=== PATIENT | male | born 1985 | race African-American/Black ===

== ENCOUNTER → 2020-12-17 | Outpatient (CLI) | payer OTHER ==
--- NOTE | 2020-12-17 15:49 | XR ---
Lumbosacral spine HISTORY: R 53, pain 5 views of lumbosacral spine There is a slight spinal curvature. There is no evident spondylolysis, there is a minimal retrolisthe sis grade 1 L5-S1. There is multilevel spondylosis, loss of disc height present L5-S1. Sclerosis pres ent in the posterior element to the lower lumbar spine. IMPRESSION: Degenerative disc disease and facet arthropathy.
--- NOTE | 2020-12-17 15:50 | XR ---
Thoracic spine HISTORY: R 53, pain 3 views of the thoracic spine There is a gentle spinal curvature present. Thoracic vertebral bodies show preserved height, alignmen t, and bone mineralization. Multilevel spondylosis. Some loss of disc height present at intervertebra l levels of the lower thoracic spine. IMPRESSION: Degenerative disc disease, slight spinal curvature.
--- NOTE | 2020-12-17 15:53 | XR ---
Cervical spine HISTORY: R 52, pain 5 views of the cervical spine There is no significant foraminal encroachment evident with the exception of C3-4 on the right, C4-5 on the right greater than C5-6, evaluation the lower foramina on the left is somewhat limited. There is somewhat of accentuation of the cervical lordosis. Loss of disc height present at C3-4, C4-5, C5-6 , there is multilevel spondylosis. Prevertebral soft tissues are within normal limits. IMPRESSION: Degenerative disc disease, foraminal encroachment, consider MRI of the spine for better e valuation.
== END | disposition home or self-care (01) ==
LOC: RADXRMAIN 12:22
PROVIDERS: ATTEND Internal Medicine
DX: M51.34 Other intervertebral disc degeneration, thoracic region (principal); M43.8X4 Other specified deforming dorsopathies, thoracic region; M51.37 Other intervertebral disc degeneration, lumbosacral region; M47.817 Spondylosis without myelopathy or radiculopathy, lumbosacral region; M50.30 Other cervical disc degeneration, unspecified cervical region; M99.71 Connective tissue and disc stenosis of intervertebral foramina of cervical region
CPT/HCPCS: 72050; 72070; 72110

== ENCOUNTER 2023-05-16 23:25 | Emergency (ER) | payer OTHER ==
[2023-05-16] MEDS ORDERED: SODIUM CHLORIDE 0.9% 1,000 ML IV STA (23:39)
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
[2023-05-16 23:42] VITALS: BP 139/88; PULSE 81; RESP 18; TEMP 98.2
[2023-05-17 00:13] LABS: Basophils % (A) 0 %; Eosinophils # (A) 0.2 k/uL (0-0.7); Eosinophils % (A) 4 %; HCT 43.8 % (39.0-53.0); HGB 13.9 gm/dL (13.0-17.5); Lymphocytes # (A) 2.3 k/uL (1.0-4.8); Lymphocytes % (A) 42 %; MCH 28.3 pg (25.0-35.0); MCHC 31.7 g/dL (31.0-37.0); Mean Platelet Volume 7.3; Monocytes # (A) 0.2 k/uL (0-1.0); Monocytes % (A) 4 %; Neutrophils # (A) 2.7 k/uL (1.3-7.7); Neutrophils % (A) 49 %; Platelet Count 203 k/uL (150-450); RBC 4.92 m/uL (4.30-5.90); RDW 12.8 % (11.5-15.5); WBC 5.6 k/uL (3.8-10.6)
[2023-05-17 00:26] LABS: Partial Thromboplastin Time 21.2 sec (22.0-30.0); Prothrombin Time 10.4 sec (9.0-12.0)
[2023-05-17 00:31] LABS: ALT 37 U/L (4-49); African American GFR (CKD) >90 (>60 ml/min/1.73 sqM); Albumin 4.2 g/dL (3.5-5.0); Anion Gap 11 mmol/L; Blood Urea Nitrogen 12 mg/dL (9-20); Carbon Dioxide 22 mmol/L (22-30); Chloride 108 mmol/L (98-107); Glucose 131 mg/dL (74-99); Non-African American GFR(CKD) >90 (>60 ml/min/1.73 sqM); Sodium 141 mmol/L (137-145); Total Bilirubin 0.4 mg/dL (0.2-1.3); Total Protein 7.4 g/dL (6.3-8.2)
[2023-05-17 00:34] LABS: AST 52 U/L (17-59); Alkaline Phosphatase 58 U/L (38-126); Magnesium 1.9 mg/dL (1.6-2.3); Phosphorus 3.2 mg/dL (2.5-4.5)
[2023-05-17 00:38] LABS: NT-Pro-B-Type Natriuretic Pept 27 pg/mL
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
== END 2023-05-17 01:53 | disposition left against medical advice (07) ==
LOC: EC 23:25
DX: Z53.21 Procedure and treatment not carried out due to patient leaving prior to being seen by health care provider (principal); Z53.29 Procedure and treatment not carried out because of patient's decision for other reasons; V49.9XXA Car occupant (driver) (passenger) injured in unspecified traffic accident, initial encounter; Y92.410 Unspecified street and highway as the place of occurrence of the external cause
CPT/HCPCS: 36415; 70450; 72125; 80053; 83605; 83735; 83880; 84100; 84484; 85025; 85610; 85730; 93005; 96360; 99285

== ENCOUNTER 2024-03-13 23:30 | Inpatient (IN) | payer MEDICAID, OTHER ==
[2024-03-13 23:40] VITALS: RESP 18
--- NOTE | 2024-03-14 00:43 | ED ---
Psych HPI - General Chief Complaint: Psychiatric Symptoms Stated Complaint: Mental Health Time Seen by Provider: 03/14/24 00:29 Source: patient Mode of arrival: ambulatory - History of Present Illness Initial Comments: Jerica is a 38-year-old male with a history of depression who presents to the emergency department today reporting suicidal thoughts. Patient states that this week has been worse than others she has been having thoughts of ending his life by overdose. Patient states he has tried multiple times to get through to [facility] but has not been able to jump with hoops to get appropriate care. Patient states he has a history of depression he has been on prozac or paxil, trazodone,Remeron and Seroquel at different points in the past he is currently only taking Seroquel. Reports he has never received inpatient psychiatric care aside from receiving psychiatric care while incarcerated. - Related Data Allergies Allergy/AdvReac Type Severity Reaction Status Date / Time No Known Allergies Allergy Verified 05/17/23 00:17 Review of Systems ROS Statement: Those systems with pertinent positive or pertinent negative responses have been documented in the HPI. ROS Other: All systems not noted in ROS Statement are negative. Past Medical History Past Medical History: No Reported History History of Any Multi-Drug Resistant Organisms: None Reported Past Surgical History: No Surgical Hx Reported Past Psychological History: Anxiety, Depression Smoking Status: Never smoker Past Alcohol Use History: Occasional Past Drug Use History: Marijuana General Exam - General Exam Comments Initial Comments: Physical Exam GENERAL: Patient is well-developed and well-nourished. Patient is nontoxic and well-hydrated and is in no distress. HENT: Normocephalic, Atraumatic. EYES: PERRL, EOMI PULMONARY: Unlabored respirations. CARDIOVASCULAR: RRR Warm and well perfused extremities ABDOMEN: Non-distended SKIN: No rashes or bruising : Deferred NEUROLOGIC: Alert and oriented Normal speech Normal gait MUSCULOSKELETAL: Moving all extremities with no apparent injury PSYCHIATRIC: Suicidal, hopeless affect Course Vital Signs 03/13/24 23:31 Temperature 97.6 F Pulse Rate 69 Respiratory 18 Rate Blood Pressure 137/84 O2 Sat by Pulse 96 Oximetry Medical Decision Making - Medical Decision Making Was pt. sent in by a medical professional or institution (, PA, CARDIOLOGY TEACHER, urgent c are, hospital, or [facility]...) When possible be specific @ -No Did you speak to anyone other than the patient for history (EMS, parent, family, police, friend...)? What history was obtained from this source @ -No Did you review nursing and triage notes (agree or disagree)? Why? @ -I reviewed and agree with nursing and triage notes Were old charts reviewed (outside hosp., previous admission, EMS record, old EKG, old radiological studies, urgent care reports/EKG's, [facility] records)? Report findings @ -No old charts were reviewed Differential Diagnosis (chest pain, altered mental status, abdominal pain women, abdominal pain men, vaginal bleeding, weakness, fever, dyspnea, syncope, headache, dizziness, GI bleed, back pain, seizure, CVA, palpatations, mental health)? @ -Not applicable EKG interpreted by me (3pts min.). @ -As above X-rays interpreted by me (1pt min.). @ -None done CT interpreted by me (1pt min.). @ -None done U/S interpreted by me (1pt. min.). @ -None done What testing was considered but not performed or refused? (CT, X-rays, U/S, labs)? Why? @ -None What meds were considered but not given or refused? Why? @ -None Did you discuss the management of the patient with other professionals (professionals i.e. , PA, CARDIOLOGY TEACHER, lab, RT, psych nurse, social services analyst, transmitter operator, teacher, purchasing officer, transplant case manager)? Give summary @ -No Was smoking cessation discussed for >3mins.? @ -No Was critical care preformed (if so, how long)? @ -No Were there social determinants of health that impacted care today? How? (Homelessness, low income, unemployed, alcoholism, drug addiction, transportation, low edu. Level, literacy, decrease access to med. care, senior living, rehab)? @ -No Was there de-escalation of care discussed even if they declined (Discuss DNR or withdrawal of care, Hospice)? DNR status @ -No What co-morbidities impacted this encounter? (DM, HTN, Smoking, COPD, CAD, Cancer, CVA, ARF, Chemo, Hep., AIDS, mental health diagnosis, sleep apnea, morbid obesity)? @ -None Was patient admitted / discharged? Hospital course, mention meds given and route, prescriptions, significant lab abnormalities, going to OR and other pertinent info. @ -Psychiatric hospital Seen and evaluated, patient acutely suicidal. Patient medically clear for evaluation was evaluated by EPS and signed in voluntarily to the psychiatric unit. Undiagnosed new problem with uncertain prognosis? @ -No Drug Therapy requiring intensive monitoring for toxicity (Heparin, Nitro, Insulin, Cardizem)? @ -No Were any procedures done? @ -No Diagnosis/symptom? @ -Suicidal ideation Acute, or Chronic, or Acute on Chronic? @ -Acute Uncomplicated (without systemic symptoms) or Complicated (systemic symptoms)? @ -Default Side effects of treatment? @ -No Exacerbation, Progression, or Severe Exacerbation? @ -No Poses a threat to life or bodily function? How? (Chest pain, [place], [place], pneumonia, PE, COPD, DKA, ARF, appy, cholecystitis, CVA, Diverticulitis, Homicidal, Suicidal, threat to staff... and all critical care pts) @ -No - Lab Data Result diagrams: 03/14/24 01:18 Lab Results 03/14/24 03/14/24 03/14/24 Range/Units 00:40 01:18 01:18 WBC 7.0 (3.8-10.6) k/uL RBC 4.38 (4.30-5.90) m/uL Hgb 12.7 L (13.0-17.5) gm/dL Hct 39.0 (39.0-53.0) % MCV 89.0 (80.0-100.0) fL MCH 29.1 (25.0-35.0) pg MCHC 32.7 (31.0-37.0) g/dL RDW 14.0 (11.5-15.5) % Plt Count 205 (150-450) k/uL MPV 7.4 Neutrophils % 47 % Lymphocytes % 38 % Monocytes % 7 % Eosinophils % 5 % Basophils % 1 % Neutrophils # 3.3 (1.3-7.7) k/uL Lymphocytes # 2.6 (1.0-4.8) k/uL Monocytes # 0.5 (0-1.0) k/uL Eosinophils # 0.4 (0-0.7) k/uL Basophils # 0.0 (0-0.2) k/uL Salicylates <1.0 mg/dL Urine Opiates Screen Not Detected (NotDetected) Ur Oxycodone Screen Not Detected (NotDetected) Urine Methadone Screen Not Detected (NotDetected) Acetaminophen <10.0 ug/mL Ur Barbiturates Screen Not Detected (NotDetected) U Tricyclic Antidepress Not Detected (NotDetected) Ur Phencyclidine Scrn Not Detected (NotDetected) Ur Amphetamines Screen Not Detected (NotDetected) U Methamphetamines Scrn Not Detected (NotDetected) U Benzodiazepines Scrn Not Detected (NotDetected) Urine Cocaine Screen Not Detected (NotDetected) U Marijuana (THC) Screen Detected H (NotDetected) Serum Alcohol <10 mg/dL Disposition Clinical Impression: Suicidal ideation Disposition: TRANSFER TO PSYCH HOSP/UNIT Condition: Serious Is patient prescribed a controlled substance at d/c from ED?: No Referrals: Gerson Griggs MD [Primary Care Provider] - 1-2 days
[2024-03-14 01:04] LABS: Amphetamine Screen,Urine Not Detected (NotDetected); Barbiturate Screen,Urine Not Detected (NotDetected); Benzodiazepines Screen,Urine Not Detected (NotDetected); Cocaine Screen,Urine Not Detected (NotDetected); Methadone Screen, Urine Not Detected (NotDetected); Opiate Screen,Urine Not Detected (NotDetected); Oxycodone Screen, Urine Not Detected (NotDetected); Phencyclidine Screen,Urine Not Detected (NotDetected); Tricyclic Antidepressant,Urine Not Detected (NotDetected); Urn Cannabinoid Scrn Detected (NotDetected)
[2024-03-14 01:40] LABS: Basophils % (A) 1 %; Eosinophils # (A) 0.4 k/uL (0-0.7); Eosinophils % (A) 5 %; HGB 12.7 gm/dL (13.0-17.5); Lymphocytes # (A) 2.6 k/uL (1.0-4.8); Lymphocytes % (A) 38 %; MCH 29.1 pg (25.0-35.0); MCHC 32.7 g/dL (31.0-37.0); Mean Platelet Volume 7.4; Monocytes # (A) 0.5 k/uL (0-1.0); Monocytes % (A) 7 %; Neutrophils # (A) 3.3 k/uL (1.3-7.7); Neutrophils % (A) 47 %; Platelet Count 205 k/uL (150-450); RBC 4.38 m/uL (4.30-5.90)
[2024-03-14 01:54] LABS: Acetaminophen <10.0 ug/mL; Alcohol <10 mg/dL; Salicylate <1.0 mg/dL
[2024-03-14] MEDS ORDERED: LORazepam 2 MG/ML INJ IM PRN (03:40)
[2024-03-14] MEDS ORDERED: IBUPROFEN 600 MG TAB PO PRN (03:40)
[2024-03-14] MEDS ORDERED: ACETAMINOPHEN TAB 325 MG TAB PO PRN (03:40)
[2024-03-14] MEDS ORDERED: HALOPERIDOL LACTATE 5 MG/ML 1 ML VIAL IM PRN (03:40)
[2024-03-14] MEDS ORDERED: haloperidoL 5 MG TAB PO PRN (03:40)
[2024-03-14] MEDS ORDERED: LORazepam 1 MG TAB PO PRN (03:40)
[2024-03-14 04:01] LABS: Appearance,Urine Cloudy (Clear); Bacteria,Urine Rare /hpf; Bilirubin,Urine Negative (Negative); Blood,Urine Negative (Negative); Calcium Oxalate Crystals,Urine Occasional /hpf; Color,Urine Yellow; Glucose,Urine (UA) Negative (Negative); Hyaline Casts,Urine 5 /lpf (0-2); Ketones,Urine Negative (Negative); Leukocyte Esterase,Urine Small (Negative); Mucus,Urine Moderate /hpf; Nitrite,Urine Negative (Negative); PH, Urine 5.5 (5.0-8.0); Protein,Urine Trace (Negative); RBC,Urine 2 /hpf (0-5); Specific Gravity,Urine 1.029 (1.001-1.035); Squamous Epithelial Cell,Urine <1 /hpf (0-4); Urobilinogen,Urine <2.0 mg/dL (<2.0); WBC,Urine 17 /hpf (0-5)
[2024-03-14] MEDS: QUEtiapine 100 MG TAB PO SCH (04:11)
[2024-03-14 04:52] VITALS: BP 136/76; PULSE 58; TEMP 97.8
[2024-03-14] MEDS ORDERED: MAG HYDROX/AL HYDROX/SIMETH 355 ML BOTTLE PO PRN (08:00)
[2024-03-14] MEDS ORDERED: MAGNESIUM HYDROXIDE 2,400 MG/30 ML CUP PO PRN (09:00)
[2024-03-14] MEDS ORDERED: SERTRALINE 50 MG TAB ONE ×2 (12:41)
[2024-03-14] MEDS ORDERED: busPIRone HCl 5 MG TAB ONE ×2 (19:41)
[2024-03-14] MEDS ORDERED: QUEtiapine 100 MG TAB ONE (19:41)
[2024-03-15] MEDS ORDERED: SERTRALINE 50 MG TAB ONE ×2 (07:39)
[2024-03-15] MEDS ORDERED: busPIRone HCl 5 MG TAB ONE ×4 (07:39→19:49)
[2024-03-15] MEDS ORDERED: QUEtiapine 100 MG TAB ONE (19:45)
[2024-03-15] MEDS ORDERED: valACYclovir HCL 1,000 MG TABLET ONE (23:59)
[2024-03-16] MEDS ORDERED: busPIRone HCl 5 MG TAB ONE ×4 (07:44→20:05)
[2024-03-16] MEDS ORDERED: QUEtiapine 100 MG TAB ONE (20:07)
[2024-03-16] MEDS ORDERED: QUEtiapine 200 MG TAB ONE ×2 (20:07)
[2024-03-16] MEDS ORDERED: valACYclovir HCL 1,000 MG TABLET ONE (23:59)
[2024-03-17] MEDS ORDERED: SERTRALINE 100 MG TAB ONE ×2 (07:43)
[2024-03-17] MEDS ORDERED: busPIRone HCl 5 MG TAB ONE ×2 (07:43)
== END 2024-03-17 12:55 | disposition home or self-care (01) | DRG 754 ==
LOC: EC 23:30 → 3MHU 03-14 03:36
PROVIDERS: ADMIT Psychiatry & Neurology Psychiatry; ATTEND Psychiatry & Neurology Psychiatry
DX: F32.A Depression, unspecified (principal); R45.851 Suicidal ideations; F41.9 Anxiety disorder, unspecified; Z91.148 Patient's other noncompliance with medication regimen for other reason
CPT/HCPCS: 36415; 80143; 80179; 80306; 80320; 81001; 82075; 85025; 87635; 99285

== ENCOUNTER 2024-04-13 16:44 | Emergency (ER) | payer OTHER ==
--- NOTE | 2024-04-13 17:03 | ED ---
General Adult HPI - General Source: patient, RN notes reviewed, old records reviewed <Darrian Woods - Last Filed: 04/13/24 20:43> <Saad Johns - Last Filed: 04/14/24 13:32> - General Stated complaint: Mental Health Time Seen by Provider: 04/13/24 16:45 - History of Present Illness Initial comments: 38-year-old male who is brought in in the custody of the police. According to the police he made a phone call and was delusional and not making sense on the phone so when the police showed up they realized the patient was paranoid and uncooperative and would not come in voluntarily he continued to act in a very bizarre manner and they eventually took him into custody but he did fight for officers. Patient himself is not giving any history and states that he did not fight the officers and that he did not want them to bring him to the hospital. Patient denies any drug use patient denies alcohol use. Patient denies any physical complaints. (Darrian Woods) - Related Data Home Medications Medication Instructions Recorded Confirmed Albuterol Inhaler [Ventolin Hfa 1 - 2 puff INHALATION RT-QID PRN 04/13/24 0 04/13/24 Inhaler] Buprenorphine/Naloxone 8Mg/2Mg 1 film SL TID 04/13/24 04/13/24 [Suboxone 8-2Mg Film] QUEtiapine [SEROquel] 300 mg PO HS 04/13/24 04/13/24 Sertraline [Zoloft] 100 mg PO DAILY 04/13/24 04/13/24 busPIRone HCl [Buspar] 5 mg PO BID 04/13/24 04/13/24 Allergies Allergy/AdvReac Type Severity Reaction Status Date / Time No Known Allergies Allergy Verified 04/13/24 17:03 Review of Systems ROS Other: All systems not noted in ROS Statement are negative. <Darrian Woods - Last Filed: 04/13/24 20:43> ROS Other: All systems not noted in ROS Statement are negative. <Saad Johns - Last Filed: 04/14/24 13:32> ROS Statement: Those systems with pertinent positive or pertinent negative responses have been documented in the HPI. Past Medical History Past Medical History: No Reported History Additional Past Medical History / Comment(s): DDD History of Any Multi-Drug Resistant Organisms: None Reported Past Surgical History: No Surgical Hx Reported Past Psychological History: Anxiety, Depression Smoking Status: Never smoker Past Alcohol Use History: Occasional Past Drug Use History: Marijuana <Darrian Woods - Last Filed: 04/13/24 20:43> General Exam <Darrian Woods - Last Filed: 04/13/24 20:43> - General Exam Comments Initial Comments: GENERAL: Patient is well-developed and well-nourished. Patient is nontoxic and well- hydrated and is in mild distress. ENT: Neck is soft and supple. No significant lymphadenopathy is noted. Oropharynx is clear. Moist mucous membranes. Neck has full range of motion without eliciting any pain. EYES: The sclera were anicteric and conjunctiva were pink and moist. Extraocular movements were intact and pupils were equal round and reactive to light. Eyelids were unremarkable. PULMONARY: Unlabored respirations. Good breath sounds bilaterally. No audible rales rhonchi or wheezing was noted. CARDIOVASCULAR: There is a regular rate and rhythm without any murmurs gallops or rubs. ABDOMEN: Soft and nontender with normal bowel sounds. SKIN: Skin is clear with no lesions or rashes and otherwise unremarkable. NEUROLOGIC: Patient is alert and oriented able to get him to answer these questions. Cranial nerves II through XII are grossly intact. Motor and sensory are also intact. Normal speech, volume and content. Symmetrical smile. MUSCULOSKELETAL: Normal extremities with adequate strength and full range of motion. No lower extremity swelling or edema. No calf tenderness. LYMPHATICS: No significant lymphadenopathy is noted PSYCHIATRIC: Patient is very agitated and is peering out the window in the ER as if he is looking for somebody and is very distrustful of all the staff. Patient becomes very upset when I even tried to touch him and listen to his lungs or heart he just keeps demanding water and is very upset. (Darrian Woods) Course Vital Signs 04/13/24 04/14/24 16:53 02:30 Temperature 97.9 F Pulse Rate 88 Respiratory 28 H 16 Rate Blood Pressure 110/88 143/87 O2 Sat by Pulse 97 Oximetry Procedures - Restraint - Face to Face Restraint Occurrence 1 Patient's Immediate Situation: Endangers self safety, Endangers others' safety, Endangers staff safety, Violent behavior Patient's Reaction to the Intervention: Uncooperative, Hostile, Belligerent, Bizarre, Aggressive, Combative Patient's Medical & Behavioral Condition: Awake, Alert, Agitated, Paranoid Need to Continue or Terminate Restraint or Seclusion: Continue Face to Face Eval of Restraint Date: 04/13/24 Face to Face Eval of Restraint Time: 16:50 <Darrian Woods - Last Filed: 04/13/24 20:43> Medical Decision Making <Darrian Woods - Last Filed: 04/13/24 20:43> <Saad Johns Gordon - Last Filed: 04/14/24 13:32> - Medical Decision Making Was pt. sent in by a medical professional or institution (, PA, WEATHERSEAL TECHNICIAN, urgent care, hospital, or penitentiary...) When possible be specific @ -[No] Did you speak to anyone other than the patient for history (EMS, parent, family, police, friend...)? What history was obtained from this source @ -[No] Did you review nursing and triage notes (agree or disagree)? Why? @ -[I reviewed and agree with nursing and triage notes] Were old charts reviewed (outside hosp., previous admission, EMS record, old EKG, old radiological studies, urgent care reports/EKG's, penitentiary records)? Report findings @ -[No old charts were reviewed] Differential Diagnosis? @ -Differential Mental Health Depression, anxiety, bipolar, psychosis, schizophrenia, borderline personality, situational depression, adjustment disorder, behavioral disorder, brain tumor, malingering, substance abuse, encephalopathy, medication reaction, dementia, hypothyroidism, degenerative neurologic disorder, lupus.... This is not meant to be all-inclusive list EKG interpreted by me (3pts min.). @ -[As above] X-rays interpreted by me (1pt min.). @ -[None done] CT interpreted by me (1pt min.). @ -[None done] U/S interpreted by me (1pt. min.). @ -[None done] What testing was considered but not performed or refused? (CT, X-rays, U/S, labs)? Why? @ -[None] What meds were considered but not given or refused? Why? @ -[None] Did you discuss the management of the patient with other professionals (professionals i.e. Dr., PA, WEATHERSEAL TECHNICIAN, lab, RT, psych nurse, social security specialist, campus police officer, teacher, community services officer, pillowcase folder)? Give summary @ -[No] Was smoking cessation discussed for >3mins.? @ -[No] Was critical care preformed (if so, how long)? @ -[No] Were there social determinants of health that impacted care today? How? (Homele ssness, low income, unemployed, alcoholism, drug addiction, transportation, low edu. Level, literacy, decrease access to med. care, fpc, rehab)? @ -[No] Was there de-escalation of care discussed even if they declined (Discuss DNR or withdrawal of care, Hospice)? DNR status @ -[No] What co-morbidities impacted this encounter? (DM, HTN, Smoking, COPD, CAD, Cancer, CVA, ARF, Chemo, Hep., AIDS, mental health diagnosis, sleep apnea, morbid obesity)? @ -[None] Was patient admitted / discharged? Hospital course, mention meds given and route, prescriptions, significant lab abnormalities, going to OR and other pertinent info. @ -Patient was on multiple substances including cocaine and methamphetamines opiates benzos. Patient was uncooperative and needed to be restrained and sedated he was given 2 of Ativan and 20 of Geodon. Patient's care will be taken over by Dr. Gutierrez at 9 PM (Darrian Woods) Patient was evaluated by EPS and felt to require inpatient psychiatric care. I discussed case at length with the patient's who states that he is delusional and paranoid. Patient will be transferred for further psychiatric care. (Saad Johns) - Lab Data Lab Results 04/13/24 Range/Units 17:25 Urine Opiates Screen Detected H (NotDetected) Ur Oxycodone Screen Not Detected (NotDetected) Urine Methadone Screen Not Detected (NotDetected) Ur Barbiturates Screen Not Detected (NotDetected) U Tricyclic Antidepress Detected H (NotDetected) Ur Phencyclidine Scrn Not Detected (NotDetected) Ur Amphetamines Screen Detected H (NotDetected) U Methamphetamines Scrn Detected H (NotDetected) U Benzodiazepines Scrn Detected H (NotDetected) Urine Cocaine Screen Detected H (NotDetected) U Marijuana (THC) Screen Not Detected (NotDetected) Disposition <Darrian Woods - Last Filed: 04/13/24 20:43> Is patient prescribed a controlled substance at d/c from ED?: No Time of Disposition: 13:32 - Out of Hospital Transfer - Req. Specs Out of Hospital Transfer - Requested Specifics: Psychiatric Non-ICU (Psychiatric inpatient) <Saad Johns - Last Filed: 04/14/24 13:32> Clinical Impression: Acute psychosis Disposition: OTHER INSTITUTION NOT DEFINED Condition: Stable Referrals: Gerson Griggs MD [Primary Care Provider] - 1-2 days
[2024-04-13 18:04] LABS: Amphetamine Screen,Urine Detected (NotDetected); Barbiturate Screen,Urine Not Detected (NotDetected); Benzodiazepines Screen,Urine Detected (NotDetected); Cocaine Screen,Urine Detected (NotDetected); Methadone Screen, Urine Not Detected (NotDetected); Opiate Screen,Urine Detected (NotDetected); Oxycodone Screen, Urine Not Detected (NotDetected); Phencyclidine Screen,Urine Not Detected (NotDetected); Tricyclic Antidepressant,Urine Detected (NotDetected); Urn Cannabinoid Scrn Not Detected (NotDetected)
[2024-04-13] MEDS: LORazepam 2 MG/ML INJ IM STA (18:20)
[2024-04-13] MEDS: ZIPRASIDONE 20 MG VIAL IM STA (20:49)
[2024-04-14 13:37] LABS: HCT 41.4 % (39.0-53.0); HGB 13.5 gm/dL (13.0-17.5); MCH 28.4 pg (25.0-35.0); MCHC 32.8 g/dL (31.0-37.0); MCV 86.6 fL (80.0-100.0); Mean Platelet Volume 6.7; Platelet Count 238 k/uL (150-450); RBC 4.78 m/uL (4.30-5.90); RDW 13.2 % (11.5-15.5); WBC 8.9 k/uL (3.8-10.6)
[2024-04-14 13:55] LABS: ALT 76 U/L (4-49); AST 222 U/L (17-59); African American GFR (CKD) >90 (>60 ml/min/1.73 sqM); Albumin 4.3 g/dL (3.5-5.0); Alkaline Phosphatase 74 U/L (38-126); Anion Gap 10 mmol/L; Blood Urea Nitrogen 12 mg/dL (9-20); Calcium 9.5 mg/dL (8.4-10.2); Carbon Dioxide 26 mmol/L (22-30); Chloride 99 mmol/L (98-107); Glucose 84 mg/dL (74-99); Non-African American GFR(CKD) >90 (>60 ml/min/1.73 sqM); Potassium 3.8 mmol/L (3.5-5.1); Sodium 135 mmol/L (137-145); Total Bilirubin 1.1 mg/dL (0.2-1.3); Total Protein 7.4 g/dL (6.3-8.2)
[2024-04-14 18:17] VITALS: TEMP 98
[2024-04-14 20:25] VITALS: BP 133/82; PULSE 90; RESP 20
--- NOTE | 2024-04-17 00:28 | HP ---
HISTORY AND PHYSICAL CHIEF COMPLAINTS: Mental status as stated, confusion, agitation, and drug overdose. HISTORY OF PRESENT ILLNESS: This gentleman was brought to the emergency room after he started to exhibit extremely bizarre behavior. No history could be obtained. Drug screen revealed multiple different illicit substances. He had to be restrained in the emergency room. It was not clear his issues were related to drugs or psychiatric condition. REVIEW OF SYSTEMS: Unobtainable. PAST MEDICAL HISTORY, FAMILY HISTORY, PERSONAL AND SOCIAL HISTORIES: Similarly unobtainable. PHYSICAL EXAMINATION: VITAL SIGNS: Normal. HEENT: Head, ears, eyes, nose, mouth and throat were normal. CHEST: Clear. CARDIAC: Normal. ABDOMEN: Soft and nontender. EXTREMITIES: Normal. NEUROLOGIC: He is intact. He is extremely agitated and was in restraints. DIAGNOSES: He was admitted to the hospital with diagnoses, 1. Mental status changes with agitation. 2. Multiple drug overdosage. PLAN: 1. Bed rest. 2. IV fluids. 3. Restraint. 4. Consult with Psychology. 5. Frequent monitoring of his neurologic status and vital signs. MMODL / IJN: [id number] /
--- NOTE | 2024-04-17 01:19 | DS ---
DISCHARGE SUMMARY CHIEF COMPLAINT: Mental status changes, agitation, and multiple drug abuse and overdose. HISTORY OF PRESENT ILLNESS AND PHYSICAL EXAMINATION: Details of this man's history and physical can be found in the initial workup. LABORATORY STUDIES: While he was in the hospital, he had laboratory studies, details of which can be found in the laboratory section of his chart. COURSE IN THE HOSPITAL: After admission, he was placed on bedrest, started on intravenous fluids and necessitated restraints. The day after admission, he was seen by Psychiatry and arrangements were made for him to be transferred out to an inpatient site of service. FINAL DIAGNOSES: 1. Mental status changes. 2. Acute psychosis. 3. Multiple drug ingestion overdosage. OPERATIONS: None. CONSULTATIONS: Psychiatry. MMODL / IJN: [id number] /
== END 2024-04-14 20:00 | disposition other institution (70) ==
LOC: EC 16:44
CPT/HCPCS: 36415; 80053; 80306; 82075; 85027; 87635; 96372; 99285

== ENCOUNTER 2024-06-07 16:19 | Emergency (ER) | payer OTHER ==
[2024-06-07 16:23] VITALS: TEMP 97.7
[2024-06-07] MEDS: KETOROLAC 15 MG/ML 1 ML VIAL IM STA (16:44)
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
[2024-06-07] MEDS: ORPHENADRINE 30 MG/ML 2 ML VIAL IM STA (17:35)
[2024-06-07 17:42] VITALS: BP 127/71; PULSE 54; RESP 18
== END 2024-06-07 17:42 | disposition home or self-care (01) ==
LOC: EC 16:19
CPT/HCPCS: 72072; 72110; 96372; 99284